=== PATIENT | female | born 1980 | race Caucasian/White ===

== ENCOUNTER 2022-05-19 08:42 | Emergency (ER) | payer BC, MEDICAID ==
[2022-05-19] MEDS ORDERED: Lactated Ringers 1,000 ML IV ONE (09:39)
[2022-05-19] MEDS ORDERED: diphenhydrAMINE 50 MG/ML SDV IVPUSH ONE (09:39)
[2022-05-19] MEDS ORDERED: Metoclopramide 10 MG/2 ML SDV IVPUSH ONE (09:40)
[2022-05-19] MEDS ORDERED: Acetaminophen 325 MG Tab PO ONE (09:46)
== END 2022-05-19 10:50 | disposition left against medical advice (07) ==
LOC: JD.ED 08:42
DX: G43.909 Migraine, unspecified, not intractable, without status migrainosus (principal); Z72.0 Tobacco use; Z88.0 Allergy status to penicillin; Z88.1 Allergy status to other antibiotic agents; Z88.8 Allergy status to other drugs, medicaments and biological substances; Z91.040 Latex allergy status
CPT/HCPCS: 96374; 96375; 99283; A9270; J1200; J2765; J7120